=== PATIENT | female | born 1935 | race African-American/Black ===

== ENCOUNTER 2022-05-05 15:23 | Emergency (ER) | payer OTHER, MEDICAID ==
[~2022-05-05] VITALS: Ht 162.6 cm; Wt 55.0 kg
[2022-05-05 18:24] LABS: Urine Bacteria FEW /hpf (None Seen); Urine Blood TRACE /uL (Negative); Urine Mucus FEW (None Seen); Urine Specific Gravity 1.018 (1.001-1.035); Urine WBC 89 /hpf (0 - 5)
[2022-05-05 22:13] LABS: Basophils # (auto) 0.1 10 ^3/uL (0-0.2); Basophils % (auto) 0.4 % (0.0-2.0); Eosinophils # (auto) 0 10 ^3/uL (0-0.8); Eosinophils % (auto) 0.1 % (0.0-7.0); Hematocrit 39.3 % (36.0-46.0); Hemoglobin 13.2 g/dL (12.2-16.2); Lymphocytes # (auto) 1.3 10 ^3/uL (0.4-5.4); Mean Corpuscular Hemoglobin 30.5 pg (28.0-32.0); Mean Corpuscular Hgb Conc. 33.7 g/dL (32.0-36.0); Mean Corpuscular Volume 90.4 fL (80.0-100.0); Monocytes % (auto) 7.1 % (0.0-12.0); Neutrophils % (auto) 83.4 % (37.0-80.0); Red Blood Cells 4.34 10^6/uL (4.0-5.20); Red Cell Distribution Width 13.1 % (11.8-14.3); White Blood Cell 14.4 10^3/uL (4.4-10.8)
[2022-05-05 22:24] LABS: Albumin 3.1 g/dL (3.4-5.0); Calcium 8.7 mg/dL (8.5-10.1); Potassium 3.7 mmol/L (3.5-5.1)
[2022-05-05 22:27] LABS: BUN/Creatinine Ratio 16.4
[2022-05-05 22:40] LABS: Total Protein 6.4 g/dL (6.4-8.2)
[2022-05-06] MEDS ORDERED: cefTRIAXone 1GM/50ML D5W 50 ML IV ONE (03:00)
[2022-05-06 04:24] VITALS: BP 160/75
== END 2022-05-06 07:20 | disposition short-term general hospital (02) ==
LOC: EDBD 15:23 → ER 15:26
DX: R41.82 Altered mental status, unspecified (principal); N39.0 Urinary tract infection, site not specified; R07.89 Other chest pain; Z20.822 Contact with and (suspected) exposure to COVID-19
CPT/HCPCS: 36415; 70450; 71045; 80053; 81001; 83605; 84484; 85025; 87040; 87077; 87086; 87088; 87186; 87426; 93005; 96365; 99285; J0696